=== PATIENT | male | born 1980 ===

== ENCOUNTER 2019-05-11 22:02 | Emergency (ER) | payer OTHER ==
[2019-05-11 22:16] VITALS: BP 132/85
--- NOTE | 2019-05-11 22:30 | Event Note ---
ED Screening Note ED Screening Note: pt was carrying tools at work and had a fall c/o middle back pain no numbness or weakness, no bowel or bladder incontinence no hx of back problems significant other did romanian interpretation This initial assessment/diagnostic orders/clinical plan/treatment(s) is/are subject to change based on patients health status, clinical progression and re- assessment by fellow clinical providers in the ED. Further treatment and workup at subsequent clinical providers discretion. Patient/guardian urged not to elope from the ED as their condition may be serious if not clinically assessed and managed. Initial orders include: XR T-spine
--- NOTE | 2019-05-11 23:10 | XRay Report ---
THORACIC SPINE 3 VIEWS INDICATION / CLINICAL INFORMATION: Fall 2 days ago with mid back pain. COMPARISON: None available. FINDINGS: BONES / JOINT(S): The vertebral body heights and disc spaces are well-maintained. The pedicles are in tact. There is no evidence of fracture or subluxation. SOFT TISSUES: No significant abnormality. ADDITIONAL FINDINGS: None. IMPRESSION: No acute abnormality. Signer Name: Austin Beach MD Signed: 05/11/2019 11:06 PM Workstation Name: [id number]
[2019-05-12] MEDS ORDERED: TORADOL IM ONE (00:05)
--- NOTE | 2019-05-12 00:05 | Emergency Department Report ---
ED Back Pain/Injury HPI - General Chief Complaint: Fall Stated Complaint: FELL AT WORK Time Seen by Provider: 05/11/19 22:29 Source: patient, family Limitations: No Limitations - History of Present Illness Initial Comments: 38-year-old male reports to the emergency room stating he had fallen 2 days ago while at work. Patient reports that he was carrying tools on top of his shoulders when he fell forward and injured his back. Patient states at that time he heard a cracking noise to his back. Patient complains of pain to the lower and mid back. Patient reports even taken Tylenol which does not help much with the pain. Patient states that the pain is worse with bending and better with lying straight. Last pain medication was 4 hours prior to arrival. Jackie craig has no past medical history takes no medications on a daily basis and has no known drug allergies. MD Complaint: back pain, back injury, fall Onset/Timin -: days(s) Similar Symptoms Previously: No Place: work Radiation: none Severity: severe Severity scale (0 -10): 7 Quality: sharp, aching Consistency: intermittent Improves With: supine Worsens With: other (bending) Context: while lifting, fall Associated Symptoms: denies other symptoms Treatments Prior to Arrival: heat therapy, acetaminophen - Related Data Previous Rx's Medication Instructions Recorded Last Taken Type Ibuprofen [Motrin 600 MG tab] 600 mg PO Q8H PRN #30 tablet 05/12/19 Unknown Rx Tizanidine HCl [Zanaflex 4mg CAP] 4 mg PO Q8H PRN #15 capsule 05/12/19 Unknown Rx Allergies Allergy/AdvReac Type Severity Reaction Status Date / Time No Known Allergies Allergy Verified 05/11/19 22:06 ED Review of Systems ROS: Stated complaint: FELL AT WORK Other details as noted in HPI Comment: All other systems reviewed and negative ED Past Medical Hx - Past Medical History Previous Medical History?: Yes Additional medical history: Obesity - Surgical History Past Surgical History?: No - Social History Smoking Status: Never Smoker Substance Use Type: None - Medications Home Medications: Home Medications Medication Instructions Recorded Confirmed Last Taken Type Ibuprofen [Motrin 600 MG tab] 600 mg PO Q8H PRN #30 tablet 05/12/19 Unknown Rx Tizanidine HCl [Zanaflex 4mg CAP] 4 mg PO Q8H PRN #15 capsule 05/12/19 Unknown Rx ED Physical Exam - General Limitations: No Limitations General appearance: alert, in no apparent distress - Head Head exam: Present: atraumatic, normocephalic - Eye Eye exam: Present: normal appearance - ENT ENT exam: Present: mucous membranes moist - Extremities Exam Extremities exam: Present: normal inspection - Back Exam Back exam: Present: full ROM, muscle spasm, paraspinal tenderness - Neurological Exam Neurological exam: Present: alert, oriented X3 - Psychiatric Psychiatric exam: Present: normal affect, normal mood - Skin Skin exam: Present: warm, dry, intact, normal color. Absent: rash ED Course Vital Signs 05/11/19 05/11/19 22:14 22:30 Temperature 98.4 F 98.4 F Pulse Rate 98 H 96 H Respiratory 16 18 Rate Blood Pressure 132/85 132/85 O2 Sat by Pulse 96 99 Oximetry ED Medical Decision Making - Radiology Data Radiology results: report reviewed Patient: JI DUNN MR#: [id number] : 1980 Acct:[id number] Age/Sex: 38 / M ADM Date: 05/11/19 Loc: ED Attending Dr: Ordering Physician: SHRADDHA ADRIAN Date of Service: 05/11/19 Procedure(s): XR spine thoracic 3V Accession Number(s): [id number] cc: SHRDADHA ADRIAN Fluoro Time In Minutes: THORACIC SPINE 3 VIEWS INDICATION / CLINICAL INFORMATION: Fall 2 days ago with mid back pain. COMPARISON: None available. FINDINGS: BONES / JOINT(S): The vertebral body heights and disc spaces are well- maintained. The pedicles are intact. There is no evidence of fracture or subluxation. SOFT TISSUES: No significant abnormality. ADDITIONAL FINDINGS: None. IMPRESSION: No acute abnormality. Signer Name: Austin Beach MD Signed: 05/11/2019 11:06 PM Workstation Name: [id number] Transcribed By: RT Dictated By: Austin Beach MD Electronically Authenticated By: Austin Beach MD Signed Date/Time: 05/11/192305 DD/ 04 TD/TT: - Medical Decision Making 38-year-old male reports to the emergency room stating he had fallen 2 days ago while at work. Patient reports that he was carrying tools on top of his shoulders when he fell forward and injured his back. Patient states at that time he heard a cracking noise to his back. Patient complains of pain to the lower and mid back. Patient reports even taken Tylenol which does not help much with the pain. Patient states that the pain is worse with bending and better with lying straight. Last pain medication was 4 hours prior to arrival. Patient has no past medical history takes no medications on a daily basis and has no known drug allergies. X-ray shows no acute abnormalities. Patient be given a Toradol injection 30 mg IM and discharged home on ibuprofen and Zanaflex. Patient is to follow-up with a primary care provider if symptoms persist or gets worse. Critical care attestation.: If time is entered above; I have spent that time in minutes in the direct care of this critically ill patient, excluding procedure time. ED Disposition Clinical Impression: Lower back injury, Low back strain Disposition: - TO HOME OR SELFCARE Is pt being admited?: No Does the pt Need Aspirin: No Condition: Stable Instructions: Muscle Strain (ED), Low Back Strain (ED) Additional Instructions: Please take pain medication and muscle relaxant as prescribed. Follow-up with her primary care provider if symptoms persist or gets worse. Prescriptions: Ibuprofen [Motrin 600 MG tab] 600 mg PO Q8H PRN #30 tablet PRN Reason: Pain Tizanidine HCl [Zanaflex 4mg CAP] 4 mg PO Q8H PRN #15 capsule PRN Reason: Pain , Severe (7-10) Referrals: ESTEFANI GARCIA MD [Primary Care Provider] - 3-5 Days Forms: Work/School Release Form(ED), Accompanied Note
== END 2019-05-12 00:40 | disposition home or self-care (01) ==
LOC: ED 22:02
DX: S39.012A Strain of muscle, fascia and tendon of lower back, initial encounter (principal); W18.30XA Fall on same level, unspecified, initial encounter; Y93.89 Activity, other specified; Y92.89 Other specified places as the place of occurrence of the external cause; Y99.8 Other external cause status
CPT/HCPCS: 72072; 96372; 99283; J1885

== ENCOUNTER 2019-12-11 19:20 | Emergency (ER) | payer SELFPAY ==
--- NOTE | 2019-12-11 19:42 | Emergency Department Report ---
Blank Doc - Documentation Documentation: 39-year-old male that presents with increased thirst and weakness. This initial assessment/diagnostic orders/clinical plan/treatment(s) is/are subject to change based on patient's health status, clinical progression and re- assessment by fellow clinical providers in the ED. Further treatment and workup at subsequent clinical providers discretion. Patient/guardians urged not to elope from the ED as their condition may be serious if not clinically assessed and managed. Initial orders include: 1- Patient sent to [facility] for further evaluation and treatment 2- labs 3- UA
[2019-12-11 20:17] LABS: Basophils # (Auto) 0.3 K/mm3 (0.0-0.1); Eosinophils # (Auto) 0.5 K/mm3 (0.0-0.4); Eosinophils % (Auto) 5.3 % (0.0-4.3); Hematocrit 44.3 % (35.5-45.6); Hemoglobin 15.2 gm/dl (11.8-15.2); Lymphocytes % (Auto) 30.3 % (13.4-35.0); Mean Corpuscular HGB Conc 34 % (32-34); Mean Corpuscular Volume 90 fl (84-94); Monocytes # (Auto) 0.4 K/mm3 (0.0-0.8); Monocytes % (Auto) 4.1 % (0.0-7.3); Platelet Count 249 K/mm3 (140-440); Red Blood Count 4.93 M/mm3 (3.65-5.03)
[2019-12-11 20:25] LABS: Alanine Aminotransferase 20 units/L (7-56); Albumin 4.2 g/dL (3.9-5); BUN/Creatinine Ratio 16; Blood Urea Nitrogen 13 mg/dL (9-20); Calcium 9.5 mg/dL (8.4-10.2); Hemolysis Index 11
[2019-12-11] MEDS ORDERED: SODIUM CHLORIDE 0.9% 1000 ML 1,000 ML IV ONE ×2 (20:52)
[2019-12-11] MEDS ORDERED: INSULIN REGULAR, HUMAN 100 UNITS/1 ML IV ONE (20:53)
--- NOTE | 2019-12-11 21:18 | Emergency Department Report ---
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 He states he has associated dry mouth, increased thirst, urinary frequency. He states that even if he drinks a lot of water he still feels thirst and dry mouth. He has not seen anybody for this. He denies any fever, vomiting, diarrhea, chest pain, shortness of breath. He denies any past medical history or allergies medications. Language line used for [place] interpretation - Related Data Previous Rx's Medication Instructions Recorded Last Taken Type Ibuprofen [Motrin 600 MG tab] 600 mg PO Q8H PRN #30 tablet 05/12/19 Unknown Rx Tizanidine HCl [Zanaflex 4mg CAP] 4 mg PO Q8H PRN #15 capsule 05/12/19 Unknown Rx metFORMIN [Glucophage] 500 mg PO BID 30 Days #60 tablet 12/11/19 Unknown Rx Allergies Allergy/AdvReac Type Severity Reaction Status Date / Time No Known Allergies Allergy Verified 05/11/19 22:06 ED Review of Systems ROS: Stated complaint: INCREASED THIRST/ELEV URINATION/ Other details as noted in HPI Comment: All other systems reviewed and negative ED Past Medical Hx - Past Medical History Previous Medical History?: No Additional medical history: Obesity - Surgical History Past Surgical History?: No - Social History Smoking Status: Never Smoker Substance Use Type: None - Medications Home Medications: Home Medications Medication Instructions Recorded Confirmed Last Taken Type Ibuprofen [Motrin 600 MG tab] 600 mg PO Q8H PRN #30 tablet 05/12/19 Unknown Rx Tizanidine HCl [Zanaflex 4mg CAP] 4 mg PO Q8H PRN #15 capsule 05/12/19 Unknown Rx metFORMIN [Glucophage] 500 mg PO BID 30 Days #60 tablet 12/11/19 Unknown Rx ED Physical Exam - General Limitations: Language Barrier General appearance: alert, in no apparent distress - Head Head exam: Present: atraumatic, normocephalic - Eye Eye exam: Present: normal appearance, PERRL, EOMI. Absent: nystagmus - ENT ENT exam: Present: mucous membranes dry (mildly) - Respiratory Respiratory exam: Present: normal lung sounds bilaterally. Absent: respiratory distress, wheezes, rales, rhonchi, stridor, chest wall tenderness, accessory muscle use, decreased breath sounds, prolonged expiratory - Cardiovascular Cardiovascular Exam: Present: regular rate, normal rhythm, normal heart sounds. Absent: systolic murmur, diastolic murmur, rubs, gallop - Neurological Exam Neurological exam: Present: alert, oriented X3, CN II-XII intact, normal gait. Absent: motor sensory deficit - Psychiatric Psychiatric exam: Present: normal affect, normal mood - Skin Skin exam: Present: warm, dry, intact ED Course Vital Signs 12/11/19 12/11/19 19:43 23:56 Temperature 98.0 F 98.1 F Pulse Rate 78 67 Respiratory 18 18 Rate Blood Pressure 130/80 Blood Pressure 145/94 [Left] O2 Sat by Pulse 95 97 Oximetry ED Medical Decision Making - Lab Data Result diagrams: 12/11/19 19:50 12/11/19 19:50 Lab Results 12/11/19 12/11/19 12/11/19 Range/Units 19:50 19:50 19:50 WBC 10.0 (4.5-11.0) K/mm3 RBC 4.93 (3.65-5.03) M/mm3 Hgb 15.2 (11.8-15.2) gm/dl Hct 44.3 (35.5-45.6) % MCV 90 (84-94) fl MCH 31 (28-32) pg MCHC 34 (32-34) % RDW 13.0 L (13.2-15.2) % Plt Count 249 (140-440) K/mm3 Lymph % (Auto) 30.3 (13.4-35.0) % [place] % (Auto) 4.1 (0.0-7.3) % Eos % (Auto) 5.3 H (0.0-4.3) % Baso % (Auto) Online [employer] Manager Lymph # 3.0 (1.2-5.4) K/mm3 [place] # 0.4 (0.0-0.8) K/mm3 Eos # 0.5 H (0.0-0.4) K/mm3 Baso # 0.3 H (0.0-0.1) K/mm3 Seg Neutrophils % 57.4 (40.0-70.0) % Seg Neutrophils # 5.7 (1.8-7.7) K/mm3 VBG pH 7.320 (7.320-7.420) Sodium 133 L (137-145) mmol/L Potassium 4.8 (3.6-5.0) mmol/L Chloride 97.1 L (98-107) mmol/L Carbon Dioxide 27 (22-30) mmol/L Anion Gap 14 mmol/L BUN 13 (9-20) mg/dL Creatinine 0.8 (0.8-1.5) mg/dL Estimated GFR > 60 ml/min BUN/Creatinine Ratio 16 % Glucose 552 H* (75-100) mg/dL POC Glucose (70-105) Calcium 9.5 (8.4-10.2) mg/dL Total Bilirubin 0.20 (0.1-1.2) mg/dL AST 12 (5-40) units/L ALT 20 (7-56) units/L Alkaline Phosphatase 166 H (35-129) units/L Total Protein 6.8 (6.3-8.2) g/dL Albumin 4.2 (3.9-5) g/dL Albumin/Globulin Ratio 1.6 % Urine Color (Yellow) Urine Turbidity (Clear) Urine pH (5.0-7.0) Ur Specific [place] (1.003-1.030) Urine Protein (Negative) mg/dL Urine Glucose (UA) (Negative) mg/dL Urine Ketones (Negative) mg/dL Urine Blood (Negative) Urine Nitrite (Negative) Urine Bilirubin (Negative) Urine Urobilinogen (<2.0) mg/dL Ur Leukocyte Esterase (Negative) Urine WBC (Auto) (0.0-6.0) /HPF Urine RBC (Auto) (0.0-6.0) /HPF 12/11/19 12/11/19 12/11/19 Range/Units 21:56 23:01 Unknown WBC (4.5-11.0) K/mm3 RBC (3.65-5.03) M/mm3 Hgb (11.8-15.2) gm/dl Hct (35.5-45.6) % MCV (84-94) fl MCH (28-32) pg MCHC (32-34) % RDW (13.2-15.2) % Plt Count (140-440) K/mm3 Lymph % (Auto) (13.4-35.0) % [place] % (Auto) (0.0-7.3) % Eos % (Auto) (0.0-4.3) % Baso % (Auto) Lymph # (1.2-5.4) K/mm3 [place] # (0.0-0.8) K/mm3 Eos # (0.0-0.4) K/mm3 Baso # (0.0-0.1) K/mm3 Seg Neutrophils % (40.0-70.0) % Seg Neutrophils # (1.8-7.7) K/mm3 VBG pH (7.320-7.420) Sodium (137-145) mmol/L Potassium (3.6-5.0) mmol/L Chloride (98-107) mmol/L Carbon Dioxide (22-30) mmol/L Anion Gap mmol/L BUN (9-20) mg/dL Creatinine (0.8-1.5) mg/dL Estimated GFR ml/min BUN/Creatinine Ratio % Glucose (75-100) mg/dL POC Glucose 411 H 322 H (70-105) Calcium (8.4-10.2) mg/dL Total Bilirubin (0.1-1.2) mg/dL AST (5-40) units/L ALT (7-56) units/L Alkaline Phosphatase (35-129) units/L Total Protein (6.3-8.2) g/dL Albumin (3.9-5) g/dL Albumin/Globulin Ratio % Urine Color Colorless (Yellow) Urine Turbidity Clear (Clear) Urine pH 5.0 (5.0-7.0) Ur Specific [place] 1.028 (1.003-1.030) Urine Protein <15 mg/dl (Negative) mg/dL Urine Glucose (UA) >=500 (Negative) mg/dL Urine Ketones Neg (Negative) mg/dL Urine Blood Neg (Negative) Urine Nitrite Neg (Negative) Urine Bilirubin Neg (Negative) Urine Urobilinogen < 2.0 (<2.0) mg/dL Ur Leukocyte Esterase Neg (Negative) Urine WBC (Auto) < 1.0 (0.0-6.0) /HPF Urine RBC (Auto) 1.0 (0.0-6.0) /HPF - Medical Decision Making Patient is a 39-year-old male presents emergency room with complaints of dizziness when he bends his head down for the last month and a half. He states he has associated dry mouth, increased thirst, urinary frequency. He states that even if he drinks a lot of water he still feels thirst and dry mouth. He has not seen anybody for this. He denies any fever, vomiting, diarrhea, chest pain, shortness of breath. He denies any past medical history or allergies medications. Vitals are stable. No abnormality on physical examination as documented in chart. Labs significant for mildly decreased sodium and chloride and elevated glucose at 552. Venous pH is normal. No ketones in the urine. Patient given 2 L IV fluids and 6 units of insulin IV. Blood sugar improved to 322. Patient states he was feeling better. Patient given prescription for metformin. Discussed lifestyle modifications with patient. advised pt to please take medication as prescribed. Increase your water intake. Please eat a low sugar and low carbohydrate diet. Incorporate 30 minutes of daily exercise. Please get a home glucose meter and test your blood sugar daily. Follow-up with a primary care doctor you will need chronic management of this disease. Return to the emergency room for any new or worsening symptoms. Language line used for [place] interpretation Critical care attestation.: If time is entered above; I have spent that time in minutes in the direct care of this critically ill patient, excluding procedure time. 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 Increase your water intake. Please eat a low sugar and low carbohydrate diet. Incorporate 30 minutes of daily exercise. Please get a home glucose meter and test your blood sugar daily. Follow-up with a primary care doctor you will need chronic management of this disease. Return to the emergency room for any new or worsening symptoms. Por favor, tome los medicamentos segn lo prescrito. Aumente bolden ingesta de agua. Por favor, consuma tesha dieta baja en azcar y baja en carbohidratos. Incorpora 30 minutos de ejercicio diario. Por favor, obtenga un medidor de glucosa en casa y pruebe bolden azcar en la genny diariamente. Seguimiento con un mdico de atencin primaria que necesitar el tratamiento crnico de esta enfermedad. Regrese a la reji de emergencias para cualquier sntoma nuevo o que empeore. Prescriptions: metFORMIN [Glucophage] 500 mg PO BID 30 Days #60 tablet Referrals: [facility] [Outside] - 3-5 Days JULIAN VIRAMONTES MD [Staff Physician] - 3-5 Days Time of Disposition: 22:56 Print Language: MONEGASQUE
[2019-12-11 21:35] LABS: Bilirubin,Urine NEG (Negative); Blood,Urine NEG (Negative); Color,Urine Colorless (Yellow); Protein,Urine <15 mg/dL mg/dL (Negative); Urobilinogen,Urine < 2.0 mg/dL (<2.0); WBC,Urine < 1.0 /HPF (0.0-6.0)
[2019-12-11 23:57] VITALS: BP 145/94
== END 2019-12-11 23:56 | disposition home or self-care (01) ==
LOC: ED 19:20
DX: E11.9 Type 2 diabetes mellitus without complications (principal); R68.2 Dry mouth, unspecified; R35.8 Other polyuria; R63.1 Polydipsia; E66.9 Obesity, unspecified; Z68.36 Body mass index [BMI] 36.0-36.9, adult; Z79.899 Other long term (current) drug therapy; Z79.84 Long term (current) use of oral hypoglycemic drugs
CPT/HCPCS: 36415; 80053; 81001; 82805; 82962; 85025; 96361; 96374; 99283; J7030; J1815